=== PATIENT | female | born 1950 | race Caucasian/White ===

== ENCOUNTER 2018-05-10 06:34 | Emergency (ER) | payer OTHER, MEDICARE ==
[2018-05-10 07:01] LABS: URINE BLOOD (Dip) POC Negative (NEGATIVE); URINE GLUCOSE (Dip) POC Negative (NEGATIVE); URINE KETONES (Dip) POC Trace (NEGATIVE); URINE LEUKOCYTE EST (Dip) POC Negative (NEGATIVE); URINE NITRITE (Dip) POC Negative (NEGATIVE); URINE TOTAL PROTEIN POC Negative (NEGATIVE)
[2018-05-10] MEDS: KETOROLAC 60 MG INJ IM (07:07)
== END 2018-05-10 07:51 | disposition home or self-care (01) ==
LOC: FTE 06:34
DX: M54.5 Low back pain (principal)
CPT/HCPCS: 72100; 81003; 96372; 99284-25

== ENCOUNTER 2018-06-12 09:01 | Emergency (ER) | payer OTHER, MEDICARE ==
[2018-06-12] MEDS: KETOROLAC 30 MG INJ IM (11:11)
== END 2018-06-12 12:19 | disposition home or self-care (01) ==
LOC: FTE 09:01
DX: M54.42 Lumbago with sciatica, left side (principal)
CPT/HCPCS: 96372; 99284-25